=== PATIENT | female | born 1960 | race Caucasian/White ===

== ENCOUNTER 2019-03-19 18:01 | Emergency (ER) | payer BC ==
[2019-03-19 19:12] VITALS: BP 135/67
--- NOTE | 2019-03-19 19:56 | UC ---
Knee Pain HPI - HPI Summary HPI Summary: 58-year-old female comes in with chief complaint of left knee pain. Patient tripped and fell and landed hard on her anterior knee today. She was able to ambulate but with pain. She is an abrasion on the anterior aspect of the knee. Pain is worse with ambulation and bending however it hurts all the time. - History of Current Complaint Chief Complaint: UCLowerExtremity Stated Complaint: PT FELL LEFT KNEE INJURY/LEFT SHLD Time Seen by Provider: 03/19/19 19:40 Hx Last Menstrual Period: n/a Pain Intensity: 11 - Allergies/Home Medications Allergies/Adverse Reactions: Allergies Allergy/AdvReac Type Severity Reaction Status Date / Time erythromycin base Allergy Tachycardia Verified 03/19/19 19:12 Home Medications: Home Medications Insulin Glargine (Nf) [Toujeo Solostar Pen 300 units/ml 1.5 ml x 3 Pens (NF)] 14 units SUBCUT DAILY 03/19/19 [History Confirmed 03/19/19] Meloxicam [Mobic] 15 mg PO QPM 03/19/19 [History Confirmed 03/19/19] Ramipril CAP* [Altace CAP*] 10 mg PO QPM 03/19/19 [History Confirmed 03/19/19] metFORMIN* [Glucophage 1000 MG TAB *] 1,000 mg PO QPM 03/19/19 [History Confirmed 03/19/19] PMH/Surg Hx/FS Hx/Imm Hx Previously Healthy: Yes - patient is on methotrexate Endocrine History: Diabetes Cardiovascular History: Hypertension - Surgical History Surgical History: Yes Surgery Procedure, Year, and Place: Neck surgery, back surgery x2, gallbladder removed, [facility]. - Family History Known Family History: Positive: Hypertension - Social History Alcohol Use: None Substance Use Type: None Smoking Status (MU): Heavy Every Day Tobacco Smoker Type: Cigarettes Amount Used/How Often: 1 pack per day Length of Time of Smoking/Using Tobacco: 40 yrs Household Exposure Type: Cigarettes Review of Systems All Other Systems Reviewed And Are Negative: Yes Constitutional: Positive: Negative Skin: Positive: Other - SEE HPI Eyes: Positive: Negative ENT: Positive: Negative Respiratory: Positive: Negative Cardiovascular: Positive: Negative Gastrointestinal: Positive: Negative Motor: Positive: Negative Neurovascular: Positive: Negative Musculoskeletal: Positive: Other: - SEE HPI Neurological/Mental Status: Positive: Negative Psychological: Positive: Negative Is Patient Immunocompromised?: No Physical Exam Triage Information Reviewed: Yes Appearance: Well-Appearing, Well-Nourished, Pain Distress - MILD WITH ROM AND EXAM OF LEFT KNEE Vital Signs: Initial Vital Signs Temp 97.8 F 03/19/19 19:00 Pulse 88 03/19/19 19:00 Resp 16 03/19/19 19:00 BP 135/67 03/19/19 19:00 Pulse Ox 97 03/19/19 19:00 Vital Signs Reviewed: Yes Eye Exam: Normal Eyes: Positive: Conjunctiva Clear Neck: Positive: Supple Respiratory: Positive: No respiratory distress Musculoskeletal: Positive: Other: - Anterior left knee is swollen and tender to palpation. Is also tender on the lateral aspects of the posterior aspect of the knee. The rest of the femur and tibia and fibula are nontender to palpation. Neurological: Positive: Alert Psychological: Positive: Age Appropriate Behavior Skin: Positive: Other - 1.5 cm abrasion the left anterior knee. It is not bleeding it is not full thickness. No drainage no erythema. Knee Pain Course/Dx - Course Course Of Treatment: I discussed the x-rays with the patient. I'm seeing a left patellar fracture. Final radiologist reading is pending. Patient does have an abrasion on her knee which was cleaned by nursing and antibiotic ointment and a dressing placed. Going to start the patient on Keflex due to the proximity of the abrasion to the patellar fracture. The abrasion is not full-thickness. Gene wrap and knee immobilizer placed by nursing and clinic patient and her rest intact after placement. Patient's current take Mobic for the pain and add acetaminophen for the pain. Patient also given a cane here in clinic. Follow- up with orthopedics. - Differential Dx/Diagnosis Provider Diagnosis: Left patella fracture, Abrasion Discharge ED - Sign-Out/Discharge Documenting (check all that apply): Patient Departure All imaging exams completed and their final reports reviewed: No - Discharge Plan Condition: Stable Disposition: HOME Prescriptions: Cephalexin CAP* [Keflex CAP*] 500 mg PO TID #20 cap Patient Education Materials: Patellar Fracture (ED), Skin Tear (ED) Referrals: Ahmet Su MD [Primary Care Provider] - Zachary Mccormick MD [Medical Doctor] - Additional Instructions: FOLLOW UP WITH ORTHOPEDICS, DR MARSON. GET REEVALUATED SOONER IF NOT IMPROVED OR WORSE OR ANY QUESTIONS OR CONCERNS. - Billing Disposition and Condition Condition: STABLE Disposition: Home
[2019-03-19] MEDS ORDERED: Cephalexin CAP* 500 MG PO ONE (19:59)
[2019-03-19] MEDS ORDERED: Acetaminophen TAB* 325 MG PO ONE (21:03)
--- NOTE | 2019-03-20 10:46 | UC ---
- Progress Note Progress Note: patient already in to see Dr. Mccormick this morning - EKG/XRAY/CT XRAY: knee - left small joint effusion. Nondisplaced intra-articular fracture lateral aspect Course/Dx - Diagnoses Provider Diagnoses: Left patella fracture, Abrasion Discharge ED - Sign-Out/Discharge Documenting (check all that apply): Post-Discharge Follow Up All imaging exams completed and their final reports reviewed: Yes - Discharge Plan Condition: Stable Disposition: HOME Prescriptions: Cephalexin CAP* [Keflex CAP*] 500 mg PO TID #20 cap Patient Education Materials: Patellar Fracture (ED), Skin Tear (ED) Referrals: Zachary Mccormick MD [Medical Doctor] - Ahmet Su MD [Primary Care Provider] - Additional Instructions: FOLLOW UP WITH ORTHOPEDICS, DR MCCORMICK. GET REEVALUATED SOONER IF NOT IMPROVED OR WORSE OR ANY QUESTIONS OR CONCERNS. - Billing Disposition and Condition Condition: STABLE Disposition: Home
== END 2019-03-19 21:20 | disposition home or self-care (01) ==
LOC: UCCORT 18:01
DX: S82.092A Other fracture of left patella, initial encounter for closed fracture (principal); S80.212A Abrasion, left knee, initial encounter; I10 Essential (primary) hypertension; E11.9 Type 2 diabetes mellitus without complications; M25.462 Effusion, left knee; Z79.4 Long term (current) use of insulin; Z88.1 Allergy status to other antibiotic agents; Z79.899 Other long term (current) drug therapy; Z82.49 Family history of ischemic heart disease and other diseases of the circulatory system; F17.210 Nicotine dependence, cigarettes, uncomplicated; W01.0XXA Fall on same level from slipping, tripping and stumbling without subsequent striking against object, initial encounter; Y92.9 Unspecified place or not applicable
CPT/HCPCS: 99214; A9270-GY; G0463

== ENCOUNTER 2022-09-10 08:23 | Observation (INO) ==
[2022-09-10] MEDS ORDERED: Heparin DRIP 25,000 UNITS BAG 25,000 UNITS/500 ML BAG IV SCH (08:45)
[2022-09-10] MEDS ORDERED: Heparin 5000 UNITS/ML 1 mL VIAL IV SCH (09:00)
[2022-09-10 09:01] LABS: ABS Eosinophils 0.1 10^3/uL (0.0-0.5); ABS Lymphocytes 1.5 10^3/uL (1.0-4.8); ABS Monocytes 0.4 10^3/uL (0.0-0.9); ABS Neutrophils 2.4 10^3/uL (1.5-7.6); ABS Nucleated RBC 0.01 10^3/ul; Eosinophil % 2.7 %; Hematocrit 27.3 % (35-45); Hemoglobin 9.3 g/dL (11.5-14.3); Lymphocyte % 34.2 %; Mean Corpuscular Hemoglobin 31.2 pg (27-33); Mean Corpuscular Hgb Conc 34.2 g/dL (31-36); Mean Corpuscular Volume 91.3 fL (80-97); Mean Platelet Volume 8.3 fL (7.5-11.2); Nucleated Red Blood Cells % 0.2 /100 WBC (0.0-0.4); Platelet Count 110 10^3/uL (150-450); Red Blood Count 2.99 10^6/uL (3.63-4.92); Red Cell Distribution Width 15.3 % (12-17); White Blood Count 4.5 10^3/uL (3.8-11.8)
[2022-09-10 09:19] LABS: Albumin 3.3 g/dL (3.2-5.2); Calcium 8.6 mg/dL (8.6-10.3); Creatinine, Serum 1.9 mg/dL (0.51-0.95); Globulin 3.4 g/dL (2-4); Potassium 4.5 mmol/L (3.5-5.0); Total Bilirubin 0.4 mg/dL (0.2-1.0); Total Protein 6.7 g/dL (6.4-8.9); eGFR CKD-EPI 29.5 (>60)
[2022-09-10 10:22] LABS: High Sensitivity Troponin 1 Hr 410 pg/mL (<15)
[2022-09-10] MEDS ORDERED: Dextrose 50% Syringe 50 ml 25 GM/50 ML SYRINGE IV PUSH PRN (10:23)
[2022-09-10 13:00] LABS: HDL Cholesterol 49.4 mg/dL
[2022-09-10] MEDS: Heparin 5000 UNITS/ML 1 mL VIAL SUBCUT SCH ×2 (14:50→21:11)
[2022-09-10] MEDS ORDERED: Insulin GLARGINE 100 un/ml 10 ml VIAL SUBCUT SCH (21:00)
[2022-09-11] MEDS: Heparin 5000 UNITS/ML 1 mL VIAL SUBCUT SCH ×2 (05:27→15:47)
[2022-09-11 06:19] LABS: Hematocrit 26.6 % (35-45); Hemoglobin 9.1 g/dL (11.5-14.3); Mean Corpuscular Hemoglobin 31.1 pg (27-33); Mean Corpuscular Hgb Conc 34.1 g/dL (31-36); Mean Corpuscular Volume 91.2 fL (80-97); Red Blood Count 2.92 10^6/uL (3.63-4.92); Red Cell Distribution Width 15.2 % (12-17); White Blood Count 3.3 10^3/uL (3.8-11.8)
[2022-09-11 06:36] LABS: ABS Eosinophils 0.2 10^3/uL (0.0-0.5); ABS Lymphocytes 1.5 10^3/uL (1.0-4.8); ABS Monocytes 0.3 10^3/uL (0.0-0.9); ABS Neutrophils 1.3 10^3/uL (1.5-7.6); Eosinophil % 5.1 %; Mean Platelet Volume 7.9 fL (7.5-11.2); Nucleated Red Blood Cells % 0.1 /100 WBC (0.0-0.4); Platelet Count 94 10^3/uL (150-450)
[2022-09-11 06:42] LABS: Calcium 8.4 mg/dL (8.6-10.3); Creatinine, Serum 1.86 mg/dL (0.51-0.95); Magnesium 1.9 mg/dL (1.9-2.7); Potassium 4.2 mmol/L (3.5-5.0); eGFR CKD-EPI 30.2 (>60)
[2022-09-11] MEDS ORDERED: Aspirin EC 81 mg TAB.EC (enteric coated) PO SCH (09:00)
[2022-09-11] MEDS ORDERED: Potassium Chlor 10 meq TAB PO SCH (09:00)
[2022-09-11 16:00] VITALS: BP 115/55
== END 2022-09-11 18:15 | disposition short-term general hospital (02) ==
LOC: ED 08:23 → EDHOLD 08:23 → SUATTDRO 10:18 → MEDTELE 12:34
PROVIDERS: ADMIT Hospitalist; ATTEND Internal Medicine